=== PATIENT | female | born 1960 | race American Indian/Alaskan Native ===

== ENCOUNTER 2019-12-25 20:21 | Emergency (ER) | payer OTHER ==
--- NOTE | 2019-12-25 20:30 | EDM.PDOC ---
ED HPI GENERAL MEDICAL PROBLEM - General Chief Complaint: Upper Extremity Injury/Pain Stated Complaint: FELL Time Seen by Provider: 12/25/19 20:25 Source of Information: Reports: Patient History Limitations: Reports: No Limitations - History of Present Illness INITIAL COMMENTS - FREE TEXT/NARRATIVE: HISTORY AND PHYSICAL: History of present illness: Patient is a 59-year-old female who presents to the emergency room with complaints of bilateral elbow and right knee pain after a fall. She states she was at [facility] when she tripped over something and had fallen onto the ground. She states her cheek had hit 1 of the racks but she did not hit her head on the ground nor had any loss of consciousness. She is ambulatory into the emergency room although has pain with palpation of the right medial knee. Moderate swelling noted to the right elbow and pain with palpation. Patient denies any fever, chills, headache, change in vision, syncope or near syncope. Denies any chest pain, back pain, shortness of breath or cough. Denies any GI or symptoms. Patient has been eating and drinking appropriately. Tetanus has been updated within the last 5 years. Not take any blood thinners. Has no bleeding or clotting disorders. Review of systems: As per history of present illness and below otherwise all systems reviewed and negative. Past medical history: As per history of present illness and as reviewed below otherwise noncontributory. Surgical history: As per history of present illness and as reviewed below otherwise noncontributory. Social history: See social history for further information Family history: As per history of present illness and as reviewed below otherwise noncontributory. Physical exam: General: Well developed and well-nourished 59-year-old female. Alert and oriented. Nontoxic-appearing and in no acute distress. HEENT: Scalp, facial bones and c-spine nontender with palpation, no crepitus or obvious injuries noted. Normocephalic, pupils equal and reactive bilaterally, negative for conjunctival pallor or scleral icterus, mucous membranes moist, TMs normal bilaterally, throat clear, neck supple, nontender, trachea midline. No drooling or trismus noted. No meningeal signs. No hot potato voice noted. Lungs: Clear to auscultation, breath sounds equal bilaterally, chest nontender. Heart: S1S2, regular rate and rhythm without overt murmur Abdomen: Soft, nondistended, nontender. Negative for masses. Negative for costovertebral tenderness. Pelvis: Stable nontender. C-spine/Back: No pinpoint vertebral tenderness upon palpation. No crepitus, step -offs or obvious deformities. Patient is ambulatory into the emergency room without difficulty or deficit. Able to rock back on heels and walk on toes. Denies any urinary or fecal incontinence. Denies any numbness, tingling or saddle paresthesia. Skin: Multiple superficial abrasions noted to bilateral shins, bilateral elbows. Swelling and bruising noted to right elbow. Otherwise skin is intact, warm, dry. No lesions or rashes noted. Extremities: Moves all extremities per self without difficulty or deficits, pain with palpation of the right medial knee, negative for cords or calf pain. Swelling and bruising noted to right elbow, pain with palpation. Strong equal upper and lower extremity pulses. Cap refill less than 3 seconds. Fair flexion and extension of the right elbow, strong grasp bilaterally. Neurovascular unremarkable. Neuro: Awake, alert, oriented. Cranial nerves II through XII unremarkable. Cerebellum unremarkable. Motor and sensory unremarkable throughout. Exam nonfocal. Notes: Tetanus has been updated within the last 5 years. X-ray of the left elbow shows soft tissue swelling. Degenerative change and osteopenia. No acute bony abnormalities are noted. Chest x-ray is unremarkable. Right knee shows osteopenia and degenerative changes, no acute fractures or dislocation. X-ray of the right elbow shows a displaced olecranon process fracture with soft tissue swelling and joint effusion. Fracture within the radial neck uncertain if this is old or acute. Osteopenia is noted. Dr Portillo, orthopedics on-call was consulted on this patient. Patient is neurovascular intact. Fiberglass posterior mold was applied to support the elbow. Sling for comfort purposes. He states he will see the patient on Saturday or , patient to call on Saturday to set up appointment. All findings were shared with the patient and family member. Medication and supportive care measures were reviewed and discussed. Voices understanding and is agreeable to plan of care. Denies any further questions or concerns at this time. Diagnostics: X-ray left elbow, x-ray right elbow, x-ray right knee Therapeutics: Mallory, fiberglass splint, sling Prescription: Mallory (#30) Impression: Fall Abrasion Right olecranon fracture Plan: 1. Rest, ice, elevate the affected extremity. Please wear the splint and sling as directed. 2. Tylenol and/or Ibuprofen as needed for pain management. Take Mallory as directed, 1-2 tabs every 4 hours as needed for pain. This medication may cause drowsiness so do not take it while driving or needing to be functioning outside of the house. 3. Follow up with the Orthopedic provider as we discussed. CALL SATURDAY TO SET UP APPOINTMENT: . Dr Portillo will likely see you in clinic on Saturday or (But YOU need to set up appointment time). 4. Return to the ED as needed and as discussed. Definitive disposition and diagnosis as appropriate pending reevaluation and review of above. Right Elbow Pain Score (Numeric/FACES): 10 - Related Data Allergies Allergy/AdvReac Type Severity Reaction Status Date / Time No Known Allergies Allergy Verified 12/25/19 20:30 Home Meds: Home Meds Hydrocodone/Acetaminophen [Mallory 5-325 Tablet] 1 each PO Q4HR PRN #30 tablet [Rx] Review of Systems - Review of Systems Review Of Systems: Comprehensive ROS is negative, except as noted in HPI. ED EXAM, GENERAL - Physical Exam Exam: See Below (See dictation) Course - Vital Signs Last Recorded V/S: Last Vital Signs Temp 96.3 F L 12/25/19 20:27 Pulse 74 12/25/19 21:36 Resp 16 12/25/19 21:36 BP 177/88 H 12/25/19 21:36 Pulse Ox 99 12/25/19 21:36 - Orders/Labs/Meds Orders: Active Orders 24 hr Category Date Time Status DME for Discharge [COMM] Stat Oth 12/25/19 21:23 Ordered Meds: Medications Discontinued Medications Generic Name Dose Route Start Last Admin Trade Name Freq PRN Reason Stop Dose Admin Hydrocodone Bitart/Acetaminophen 1 tab 12/25/19 21:23 12/25/19 21:35 Mallory 325-5 Mg PO 12/25/19 21:24 1 tab ONETIME ONE Administration Departure - Departure Time of Disposition: 21:40 Disposition: Home, Self-Care 01 Clinical Impression: Abrasion Fall Qualifiers: Encounter type: initial encounter Qualified Code(s): W19.XXXA - Unspecified fall, initial encounter Olecranon fracture Qualifiers: Encounter type: initial encounter Fracture type: closed Laterality: right Qualified Code(s): S52.021A - Displaced fracture of olecranon process without intraarticular extension of right ulna, initial encounter for closed fracture - Discharge Information Prescriptions: Hydrocodone/Acetaminophen [Mallory 5-325 Tablet] 1 each PO Q4HR PRN #30 tablet PRN Reason: Pain Instructions: Olecranon Fracture Referrals: PCP,Not In Area [Primary Care Provider] - Forms: ED Department Discharge Additional Instructions: The following information is given to patients seen in the emergency department who are being discharged to home. This information is to outline your options for follow-up care. We provide all patients seen in our emergency department with a follow-up referral. The need for follow-up, as well as the timing and circumstances, are variable depending upon the specifics of your emergency department visit. If you don't have a primary care physician on staff, we will provide you with a referral. We always advise you to contact your personal physician following an emergency department visit to inform them of the circumstance of the visit and for follow-up with them and/or the need for any referrals to a consulting specialist. The emergency department will also refer you to a specialist when appropriate. This referral assures that you have the opportunity for follow-up care with a specialist. All of these measure are taken in an effort to provide you with optimal care, which includes your follow-up. Under all circumstances we always encourage you to contact your private physician who remains a resource for coordinating your care. When calling for follow-up care, please make the office aware that this follow-up is from your recent emergency room visit. If for any reason you are refused follow-up, please contact the [facility] Emergency Department at and asked to speak to the emergency department charge nurse. [facility] Professional Building [address] [place] [address], [address] [place] [address] 1. Rest, ice, elevate the affected extremity. Please wear the splint and sling as directed. 2. Tylenol and/or Ibuprofen as needed for pain management. Take Mallory as directed, 1-2 tabs every 4 hours as needed for pain. This medication may cause drowsiness so do not take it while driving or needing to be functioning outside of the house. 3. Follow up with the Orthopedic provider as we discussed. CALL SATURDAY TO SET UP APPOINTMENT: . Dr Portillo will likely see you in clinic on Saturday or (But YOU need to set up appointment time). 4. Return to the ED as needed and as discussed. Sepsis Event Note - Evaluation Sepsis Screening Result: No Definite Risk - Focused Exam Vital Signs: Vital Signs Temp Pulse Resp BP Pulse Ox 12/25/19 21:36 74 16 177/88 H 99 12/25/19 20:27 96.3 F L 68 18 147/87 H 96 Date Exam was Performed: 12/25/19 Time Exam was Performed: 21:37 - My Orders Last 24 Hours: My Active Orders 12/25/19 21:23 DME for Discharge [COMM] Stat - Assessment/Plan Last 24 Hours: My Active Orders 12/25/19 21:23 DME for Discharge [COMM] Stat
[2019-12-25] MEDS ORDERED: Acetaminophen/HYDROcodone 325-5 MG Tab PO ONE (21:23)
--- NOTE | 2019-12-25 21:24 | CR ---
Chest: Portable view of the chest was obtained. Comparison: No prior chest imaging is available. Heart size is normal. Tortuous thoracic aorta is seen. Lungs are clear with no acute parenchymal change. Several old healed left-sided rib fractures are noted. Bony structures are osteoporotic. Impression: 1. Nothing acute is appreciated on portable chest x-ray. Diagnostic code #1 Study was dictated in MDT
--- NOTE | 2019-12-25 21:27 | CR ---
Left elbow: 3 views left elbow were obtained. Comparison: No previous study. Soft tissue swelling is noted posteriorly. Joint space narrowing is noted within the radiocapitellar joint. Equivocal small joint effusion is noted. No discrete fracture or other bony abnormality is appreciated. Osteopenia is seen. Impression: 1. Soft tissue swelling. 2. Degenerative change and osteopenia. 3. Equivocal joint effusion. 4. No acute bony abnormality is appreciated. Diagnostic code #2 Study was dictated in MDT
--- NOTE | 2019-12-25 21:28 | CR ---
Right elbow: 3 views the right elbow were obtained. Displaced olecranon process fracture as noted. Fracture is also noted within the radial neck. This may be old or acute. Joint effusion is seen. Soft tissue swelling is noted. Osteopenia is noted. Impression: 1. Displaced olecranon process fracture with soft tissue swelling and joint effusion. 2. Fracture within the radial neck, uncertain if this is old or acute. 3. Osteopenia. Diagnostic code #3 Study was dictated in MDT
--- NOTE | 2019-12-25 21:28 | CR ---
Right knee: AP, lateral and sunrise patellar views of the right knee were obtained. Comparison: No previous knee exam. Severe medial joint space narrowing is noted with medial osteophytes. Severe joint space narrowing is noted within the patellofemoral joint. Bony structures are osteopenic. No discrete fracture or dislocation is noted. Impression: 1. Osteopenia and degenerative change. 2. No acute fracture or dislocation is seen. Diagnostic code #2 Study was dictated in MDT
== END 2019-12-25 21:38 | disposition home or self-care (01) ==
LOC: MW.ED 20:21
DX: S52.021A Displaced fracture of olecranon process without intraarticular extension of right ulna, initial encounter for closed fracture (principal); S50.02XA Contusion of left elbow, initial encounter; S80.812A Abrasion, left lower leg, initial encounter; S80.811A Abrasion, right lower leg, initial encounter; W01.0XXA Fall on same level from slipping, tripping and stumbling without subsequent striking against object, initial encounter; Y92.512 Supermarket, store or market as the place of occurrence of the external cause
CPT/HCPCS: 29105; 71045; 73080; 73562; 99283; A9270; 29125